=== PATIENT | male | born 1975 | race Caucasian/White ===

== ENCOUNTER 2016-10-21 06:33 | Emergency (ER) | payer SELFPAY ==
[~2016-10-21] VITALS: Ht 167.6 cm; Wt 91.0 kg
[2016-10-21] MEDS ORDERED: IPRATROPIUM/ALBUTEROL 0.5-3(2.5)MG/3ML NEB HHN ONE (07:15)
[2016-10-21] MEDS ORDERED: ONDANSETRON 4MG ODT PO ONE (07:30)
[2016-10-21 07:39] VITALS: BP 132/76
== END 2016-10-21 09:13 | disposition home or self-care (01) ==
LOC: ER 06:38
DX: J06.9 Acute upper respiratory infection, unspecified (principal); I10 Essential (primary) hypertension
CPT/HCPCS: 71010; 94664; 99283; Q0162; J7620